=== PATIENT | male | born 1960 | race Two or more races ===

== ENCOUNTER 2020-01-12 07:22 | Outpatient (CLI) | payer OTHER | END 2020-01-12 23:59 | disposition home or self-care (01) | DX: Z01.812 Encounter for preprocedural laboratory examination (principal); Z20.828 Contact with and (suspected) exposure to other viral communicable diseases | CPT/HCPCS: 87426; C9803 ×2; U0003 ==

== ENCOUNTER 2020-01-17 08:33 | Day surgery (SDC) | payer OTHER ==
[~2020-01-17] VITALS: Ht 170.2 cm; Wt 95.3 kg
--- NOTE | 2020-01-17 09:00 | NUR ---
RN MS NOTES RECEIVED PT FROM E.. STAFF, PT AMBULATORY WITH STEADY GAIT, ASSISTED TO HIS ROOM, MADE COMFORTABLE, ROOM SET UP ORIENTATION PROVIDED TO PT, VERBALIZED UNDERSTANDING, NO COMPLAINT OF PAIN AT THIS TIME, BREATHING PATTERN NORMAL, PT FOR LEFT SHOULDER SURGERY TODAY, KEPT NPO, KEPT COMFORTABLE IN BED.
[2020-01-17] MEDS ORDERED: ATOR20TA PO (09:02)
[2020-01-17] MEDS ORDERED: LISI10TA5 PO (09:02)
[2020-01-17] MEDS ORDERED: GLIM2TAB31 PO (09:02)
[2020-01-17] MEDS ORDERED: ASPI-1169 PO (09:02)
[2020-01-17] MEDS ORDERED: METF-440 PO (09:02)
[2020-01-17 11:10] VITALS: BP 135/82
--- NOTE | 2020-01-17 13:08 | NUR ---
RN MS NOTES PT PICKED UP FOR SURGERY VIA GUERNEY, DENIES PAIN, NOT IN DISTRESS, BELONGINGS KEPT LOCKED IN NURSES' STATION SAFE, IN STABLE CONDITION.
[2020-01-17] MEDS ORDERED: EPINEPHRINE (1:1000) 1 MG/ML AMPUL ONE (14:17)
[2020-01-17] MEDS ORDERED: methylPREDNISolone ACETATE 80 MG/ML VIAL ONE (14:18)
[2020-01-17] MEDS ORDERED: MIDAZOLAM HCL 2 MG/2ML VIAL ONE (14:28)
[2020-01-17] MEDS ORDERED: FENTANYL PF 250MCG/5ML AMPUL ONE (14:29)
[2020-01-17] MEDS ORDERED: SUCCINYLCHOLINE CHLORIDE 20 MG/ML VIAL ONE (14:29)
[2020-01-17] MEDS ORDERED: FAMOTIDINE/PF INJ 20 MG/2 ML VIAL IV ONE (14:29)
[2020-01-17] MEDS ORDERED: BUPIVACAINE 0.25% 75 MG/30 ML VIAL ONE (14:30)
[2020-01-17] MEDS ORDERED: HYDROMORPHONE INJ 2 MG/ML DISP.SYRIN ONE (16:03)
[2020-01-17 16:50] VITALS: BP 132/86
--- NOTE | 2020-01-17 16:50 | NUR ---
RN MS NOTES PT BACK FROM SURGERY VIA BED, PT IS SLEEPY, VERBALLY RESPONSIVE, WITH COMPLAINT OF PAIN 5/10 TO LEFT SHOULDER, LEFT ARM SLING ON, POST OP ORDERS RECEIVED FROM MD, NOTED AND CARRIED OUT, KEPT PT COMFORTABLE, VITAL SIGNS STABLE, NEEDS ATTENDED.
[2020-01-17] MEDS ORDERED: HYDROCODONE/APAP 5/325MG TABLET PO PRN ×2 (17:00)
[2020-01-17 17:30] VITALS: BP 123/82
--- NOTE | 2020-01-17 19:13 | NUR ---
RN MS CLOSING NOTES PATIENT RESTING COMFORTABLY IN BED, ON RA WITH EVEN UNLABORED BREATHS, NO ACUTE RESPIRATORY DISTRESS NOTED. PATIENT STATES PAIN LEVEL 2/10 TO LT SHOULDER S/P LT SHOULDER ARTHROSCOPY, LT SHOULDER ON SLING . IV TO RT HAND PATENT AND INTACT. INCENTIVE SPIROMETER AT BED SIDE. BED AT LOWEST POSITION WITH SIDE RAILS UPX2 AND LOCKED. CALL LIGHT WITH IN REACH. WILL ENDORSE TO FURNACE REPAIRER
--- NOTE | 2020-01-17 20:40 | NUR ---
MS RN NOTES RECEIVED PT LAYING IN BED COMFORTABLY. BREATHING EVEN AND UNLABORED ON ROOM AIR. SHOWS NO SIGNS OF ACUTE RESPIRATORY DISTRESS. NO ACUTE PAIN. IV ON R WRIST 20G WORKING WELL AND REMOVED WITH CATHETER INTACT. SHOWS NO SIGNS OF INFILTRATION, NO REDNESS. BELONGINGS CHECKLIST SIGNED AND DISCHARGE PAPER WORK SIGNED. REMOVED WRISTBAND. EDUCATED PATIENT OF DISCHARGE TEACHING. SAFETY PRECAUTIONS IN PLACE. PT WHEELCHAIR DOWN WITH CITY PLANNER AT DISCHARGE. FAMILY CAME TO WHEEL FITTER PT.
== END 2020-01-17 18:00 | disposition home or self-care (01) ==
LOC: DS 08:33 → MED 08:35 → UNDOADMIN 08:35 → DS 18:00 → UNDODISIN 21:28
PROVIDERS: ATTEND Specialist
DX: M75.42 Impingement syndrome of left shoulder (principal); I10 Essential (primary) hypertension; E11.9 Type 2 diabetes mellitus without complications; Z79.82 Long term (current) use of aspirin; Z79.899 Other long term (current) drug therapy
CPT/HCPCS: 29824; 29826; 82962; A4217; A4565; J0171; J0330 ×2; J0690; J1040; J1170; J2250; J2405; J2704; J3010; J3490 ×3; G0378